=== PATIENT | female | born 1940 | race Caucasian/White ===

== ENCOUNTER → 2020-08-29 | Day surgery (SDC) | payer MEDICARE ==
[~2020-08-29] VITALS: Ht 167.6 cm; Wt 81.6 kg
[~2020-08-29] MED LIST: HCTZ12.5 MG PO; JANTOVEN2 MG PO; JANTOVEN5 MG PO; LIPITOR 10MG TA10 MG PO; LOVENOX IJ; PRINIVIL20 MG PO; TENORMIN50 MG PO
[2020-08-29 12:39] LABS: INR 1.25 (0.9-1.2); PTT 26.8 SECONDS (24.4-34.7)
== END | disposition home or self-care (01) ==
LOC: FAS 10:21
PROVIDERS: Anesthesiology
DX: K57.30 Diverticulosis of large intestine without perforation or abscess without bleeding (principal); K56.609 Unspecified intestinal obstruction, unspecified as to partial versus complete obstruction; Z79.01 Long term (current) use of anticoagulants; Z85.038 Personal history of other malignant neoplasm of large intestine; Z88.0 Allergy status to penicillin
CPT/HCPCS: 36415; 85610; 85730; J1610; J2704; J7120